=== PATIENT | female | born 2000 | race Caucasian/White ===

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

== ENCOUNTER 2024-03-22 18:02 | Emergency (ER) | payer MEDICAID, OTHER ==
[2024-03-22 18:06] VITALS: RESP 18
--- NOTE | 2024-03-22 19:33 | ED ---
URI HPI - General Chief Complaint: Fever Stated Complaint: fever,chills Time Seen by Provider: 03/22/24 18:30 Source: patient, RN notes reviewed Mode of arrival: ambulatory Limitations: no limitations - History of Present Illness Initial Comments: This is a 23-year-old female who presents to the emergency department for coughing, congestion, fevers, and bodyaches. Symptoms started this morning. 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 Reports 1 episode of emesis. Also reports a sore throat. Denies any chest pain or shortness of breath. MD Complaint: cough, sore throat, nasal congestion - Related Data Previous Rx's Medication Instructions Recorded Ibuprofen [Motrin] 800 mg PO Q8H PRN #30 tab 03/22/24 Nirmatrelvir/Ritonavir [Paxlovid 1 pack PO BID 5 Days #30 tab 03/22/24 300-100 mg Dose Pack] Nirmatrelvir/Ritonavir [Paxlovid 1 pack PO BID 5 Days #30 tab 03/22/24 300-100 mg Dose Pack] Allergies Allergy/AdvReac Type Severity Reaction Status Date / Time amoxicillin AdvReac Itching Verified 03/22/24 18:06 Penicillins AdvReac Itching Verified 03/22/24 18:06 Review of Systems ROS Statement: Those systems with pertinent positive or pertinent negative responses have been documented in the HPI. ROS Other: All systems not noted in ROS Statement are negative. Past Medical History Past Medical History: No Reported History History of Any Multi-Drug Resistant Organisms: None Reported Past Surgical History: No Surgical Hx Reported Past Psychological History: No Psychological Hx Reported Smoking Status: Current every day smoker Past Alcohol Use History: Occasional Past Drug Use History: None Reported General Exam Limitations: no limitations General appearance: alert, in no apparent distress Head exam: Present: atraumatic, normocephalic, normal inspection ENT exam: Present: normal oropharynx, mucous membranes moist, TM's normal bilaterally, normal external ear exam Respiratory exam: Present: normal lung sounds bilaterally. Absent: respiratory distress, wheezes, rales, rhonchi, stridor Cardiovascular Exam: Present: regular rate, normal rhythm, normal heart sounds. Absent: systolic murmur, diastolic murmur, rubs, gallop, clicks Neurological exam: Present: alert, oriented X3, CN II-XII intact Psychiatric exam: Present: normal affect, normal mood Skin exam: Present: warm, dry, intact, normal color. Absent: rash Course Vital Signs 03/22/24 03/22/24 03/22/24 18:04 18:22 18:28 Temperature 98.2 F 99.7 F H Pulse Rate 114 H 108 H Respiratory 18 18 18 Rate Blood Pressure 126/75 O2 Sat by Pulse 97 98 Oximetry 03/22/24 20:58 Temperature 98.9 F Pulse Rate 76 Respiratory 18 Rate Blood Pressure 111/79 O2 Sat by Pulse 97 Oximetry Medical Decision Making - Medical Decision Making This is a 23 year old female who presents to the emergency department for coughing and congestion. Was pt. sent in by a medical professional or institution? @ -No Did you speak to anyone other than the patient for history? @ -No Did you review nursing and triage notes? @ -Yes, and I agree, it is accurate with regards to the patient's symptoms. Were old charts reviewed? @ -No Differential Diagnosis? @ -Differential Cough: Influenza, Covid, RSV, croup, allergic rhinitis, GERD, pneumonia, bronchitis, COPD, viral pharyngitis, streptococcal pharyngitis, this is not meant to be an all-inclusive list. EKG interpreted by me (3pts min.)? @ -Not obtained X-rays interpreted by me (1pt min.)? @ -Chest x-ray obtained, my interpretation identifies no localized consolidations or infiltrates. CT interpreted by me (1pt min.)? @ -Not obtained U/S interpreted by me (1pt. min.)? @ -Not obtained What testing was considered but not performed? (CT, X-rays, U/S, labs)? Why? @ -None What meds were considered but not given? Why? @ -None Did you discuss the management of the patient with other professionals? @ -No Did you reconcile home meds? @ -No Was smoking cessation discussed for >3mins.? @ -No Was critical care preformed (if so, how long)? @ -No Were there social determinants of health that impacted care today? How? (Homelessness, low income, unemployed, alcoholism, drug addiction, transportation, low edu. Level, literacy, decrease access to med. care, [facility], rehab)? @ -No Was there de-escalation of care discussed even if they declined? (Discuss DNR or withdrawal of care, Hospice)? @ -No What co-morbidities impacted this encounter? (DM, HTN, Smoking, COPD, CAD, Cancer, CVA, Hep., AIDS, mental health diagnosis, sleep apnea, morbid obesity)? @ -None Was patient admitted / discharged? @ -Discharged. Patient positive for COVID-19. Influenza and RSV testing negative. Rapid strep test negative. Chest x-ray reveals no acute process. Symptoms managed in the emergency department. Patient requested to proceed with Paxlovid. Paxlovid prescribed along with ibuprofen. Advised ibuprofen and Tylenol as needed for fevers and bodyaches. Patient discharged home in stable condition. Case discussed with ED attending Dr. Alfonso. Return precautions reviewed in depth, the patient is instructed to return to the emergency department with any new, worsening, or concerning symptoms. Patient verbalized understanding. Undiagnosed new problem with uncertain prognosis? @ -None Drug Therapy requiring intensive monitoring for toxicity (Heparin, Nitro, Insulin, Cardizem)? @ -None Were any procedures done? @ -None Diagnosis/symptom? @ -COVID-19 Acute, or Chronic, or Acute on Chronic? @ -Acute Uncomplicated (without systemic symptoms) or Complicated (systemic symptoms)? @ -Uncomplicated Side effects of treatment? @ -None Exacerbation, Progression, or Severe Exacerbation] @ -Not applicable Poses a threat to life or bodily function? @ -No - Lab Data Lab Results 03/22/24 03/22/24 Range/Units 18:44 18:44 Influenza Type A (PCR) Not Detected (Not Detectd) Influenza Type B (PCR) Not Detected (Not Detectd) RSV (PCR) Not Detected (Not Detectd) SARS-CoV-2 (PCR) Detected A (Not Detectd) Group A Strep (PCR) NOT DETECTED (Not Detectd) - Radiology Data Radiology results: report reviewed, image reviewed Disposition Clinical Impression: COVID-19 Disposition: HOME SELF-CARE Instructions (If sedation given, give patient instructions): COVID-19 (Coronavirus Disease 2019) (ED), How to Recover from COVID-19 at Home (ED) Additional Instructions: Return to the emergency department with any new, worsening, or concerning symptoms. Take the Paxlovid as prescribed for 5 days. Alternate with ibuprofen and Tylenol as needed for fevers and discomfort. Prescriptions: Ibuprofen [Motrin] 800 mg PO Q8H PRN #30 tab PRN Reason: Fever And/ Or Pain Nirmatrelvir/Ritonavir [Paxlovid 300-100 mg Dose Pack] 1 pack PO BID 5 Days #30 tab Nirmatrelvir/Ritonavir [Paxlovid 300-100 mg Dose Pack] 1 pack PO BID 5 Days #30 tab Is patient prescribed a controlled substance at d/c from ED?: No Referrals: Maddie Dutton MD [Primary Care Provider] - 1-2 days Time of Disposition: 20:26
[2024-03-22] MEDS: ACETAMINOPHEN TAB 500 MG TAB PO STA (19:42)
[2024-03-22] MEDS: KETOROLAC 15 MG/ML 1 ML VIAL IM STA (19:43)
[2024-03-22] MEDS: DEXAMETHASONE SOD PHOSPHATE 10 MG/ML 1 ML VIAL IM STA (19:43)
--- NOTE | 2024-03-22 20:07 | XR ---
EXAMINATION TYPE: XR chest 2V DATE OF EXAM: 03/22/2024 7:37 PM CLINICAL INDICATION:Female, 23 years old with history of Cough; [facility] COMPARISON: None TECHNIQUE: XR chest 2V. Frontal and lateral views of the chest.. FINDINGS: Lines/Tubes/Devices: No indwelling lines are seen. Heart/mediastinum: Heart size is normal. Mediastinum appears normal. Pulmonary vascularity: Not increased, Lungs/Pleura: There is no evidence of pleural effusion, focal consolidation, or pneumothorax. Musculoskeletal: No acute osseous abnormality demonstrated in the limits of the exam. Other findings: None. IMPRESSION: No acute cardiopulmonary abnormality.
[2024-03-22 20:59] VITALS: BP 111/79; PULSE 76; TEMP 98.9
== END 2024-03-22 20:59 | disposition home or self-care (01) ==
LOC: EC 18:02
CPT/HCPCS: 71046; 87636; 87651; 96372; 99283